=== PATIENT | male | born 2000 | race Caucasian/White ===

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

== ENCOUNTER 2019-08-31 17:19 | Emergency (ER) | payer OTHER ==
[~2019-08-31] VITALS: Ht 175.3 cm; Wt 87.1 kg
[~2019-08-31 17:19] MED LIST: FLA500 PO; LAC PO; LEVAQUIN750 MG PO; METAMUCIL PACK3.4 GM PO; MIRUD PO
[2019-08-31 17:39] VITALS: Ht 175.3 cm; Wt 87.1 kg
[2019-08-31 20:29] VITALS: BP 131/78
== END 2019-08-31 20:29 | disposition home or self-care (01) ==
LOC: ED 17:19
DX: J20.9 Acute bronchitis, unspecified (principal); M79.10 Myalgia, unspecified site

== ENCOUNTER 2020-11-22 20:10 | Emergency (ER) | payer OTHER ==
[~2020-11-22] VITALS: Ht 172.7 cm; Wt 110.7 kg
[2020-11-22 20:18] VITALS: Ht 172.7 cm; Wt 110.7 kg
[2020-11-22] MEDS ORDERED: IBU600 M2 PO (20:52)
[2020-11-22] MEDS ORDERED: ROB500 PO (20:57)
[2020-11-22 21:08] VITALS: BP 135/86
== END 2020-11-22 21:08 | disposition home or self-care (01) ==
LOC: ED 20:10
DX: S29.012A Strain of muscle and tendon of back wall of thorax, initial encounter (principal); X50.0XXA Overexertion from strenuous movement or load, initial encounter; Y93.89 Activity, other specified; Y92.89 Other specified places as the place of occurrence of the external cause; Y99.8 Other external cause status
CPT/HCPCS: J1885